=== PATIENT | female | born 1985 | race Caucasian/White ===

== ENCOUNTER 2016-10-15 17:18 | Emergency (ER) | payer OTHER ==
--- NOTE | ~2016-10-15 | CR72 ---
[facility] A Service of [facility] RADIOLOGY TEXT RESULTS PATIENT: BRENT TAN LOCATION: [facility] : 85 UNIT #: [id number] AGE: [address]: Ruperto Hicks MD SEX: F ORDER DR: [id number] [facility] [address] [place], [place] [address] [id number] MR#: [id number] Acc #: [id number] NAME: BRENT TAN : 1985 SEX: F STUDY DATE/TIME: 10/15/2016 18:17 UNIT: [facility] ROOM: STUDY DESCRIPTION: CR Chest Single View Portable Attending Physician: Ruperto Hicks M.D. Ordering Physician: Ruperto Hicks M.D. Primary Care Physician: No Primary Care Physician MEDICAL IMAGING REPORT This report is preliminary unless electronic signature is present EXAM Portable chest HISTORY Sharp chest pain onset today. Pain is in the midchest TECHNIQUE Single view of the chest was obtained. FINDINGS Single view chest shows no bony abnormalities. Heart size is normal. The inspiratory effort is shallow. At the inferior aspect of the image, there are multiple radiodensities noted projecting over the upper abdomen. I am not sure that this represents artifact, skin calcifications or calcifications in the upper peritoneum. It does not conform to normal anatomic structures. It could also represent artifact on the patient's clothing. Vascular markings are normal and no pleural fluid is seen. IMPRESSION Shallow inspiratory effort with no active disease seen in the chest. Multiple faint radiodensities are seen projecting over the upper abdomen. I suspect likely represents artifact perhaps from the patient's clothing. It could also potentially represent skin calcifications or peritoneal calcifications, but artifact is favored. Dictated by... Manolo Diallo M.D. THIS IS AN ELECTRONICALLY VERIFIED REPORT Manolo Diallo M.D. at 10/21/2016 7:11 AM [facility] A Service of [facility] RADIOLOGY TEXT RESULTS PATIENT: BRENT TAN LOCATION: [facility] : 85 UNIT #: [id number] AGE: [address]: Ruperto Hicks MD SEX: F ORDER DR: CAMILLE/[email or web address] TD: 10/15/2016 23:55 JOB #: [id number] MEDICAL IMAGING REPORT Page 1 of 1 COPY
--- NOTE | ~2016-10-15 | EKG ---
PATIENT: BRENT TAN UNIT #: [id number] Ventricular Rate: 83 BPM Atrial Rate: 83 BPM P-R Interval: 218 ms QRS Duration: 110 ms Q-T Interval: 370 ms QTC Calculation(Bezet): 434 ms P Willis: 61 degrees Calculated R Willis: 65 degrees Calculated T Willis: 23 degrees Diagnosis Line: Sinus rhythm with 1st degree A-V block Diagnosis Line: Otherwise normal ECG Diagnosis Line: No previous ECGs available Diagnosis Line: Confirmed by LOUIS LIVINGSTON MD ([id number]) on Diagnosis Line: 10/16/2016 6:51:45 AM INTERPRETING MD: [email or web address]
[2016-10-15 18:29] LABS: BASOPHIL% 0.4 % (0-2.5); EOSINOPHIL# 0.4 X10e3 (0-0.7); EOSINOPHIL% 4.3 % (0.0-7.0); HEMATOCRIT 38.2 % (35.0-45.0); HEMOGLOBIN 12.5 gm/dL (12.0-16.0); LYMPHOCYTE# 2.4 X10e3 (1.0-3.5); LYMPHOCYTE% 25.4 % (17.0-45.0); MEAN CELL VOLUME 86.9 FL (83-96); MEAN CORPUSCULAR HEMOGLOBIN 28.3 PG (28-34); MEAN CORPUSCULAR HGB CONC 32.6 g/dL (30-36); MEAN PLATELET VOLUME 10.8 FL (6.5-11.5); MONOCYTE# 0.4 X10e3 (0-1.0); MONOCYTE% 4.5 % (3.0-12.0); NEUTROPHIL# 6.3 X10e3 (1.5-7.1); NEUTROPHIL% 65.4 % (40-75); PLATELET COUNT 108 X10e3 (140-420); RED BLOOD COUNT 4.39 X10e (3.90-5.30); RED CELL DISTRIBUTION WIDTH 14.2 % (11.0-15.5); WHITE BLOOD COUNT 9.6 X10e3 (4.0-10.5)
[2016-10-15 18:30] LABS: DIFF IND NO
[2016-10-15 18:45] LABS: PARTIAL THROMBOPLASTIN TIME 27.1 SECONDS (23.5-31.3); PROTHROMBIN TIME (PATIENT) 10.9 SECONDS (10.0-11.7)
[2016-10-15 18:58] LABS: ALBUMIN SERUM 3.8 g/dL (3.5-5.0); BILIRUBIN, DIRECT 0.1 mg/dL (0.0-0.2); BILIRUBIN,TOTAL 0.1 mg/dL (0.2-2.0); BUN/CREATININE RATIO 13.33; CALCIUM SERUM 8.9 mg/dL (8.4-10.2); CREATININE SERUM 0.9 mg/dL (0.6-1.4); GLOM FILT RATE Estimated 85.9 mL/min (>60); POTASSIUM 3.5 mmol/L (3.5-5.1); PROTEIN TOTAL SERUM 6.8 g/dL (6.0-8.3)
[2016-10-15 20:20] LABS: POC - CKMB 1.1 ng/mL (0.0-7.9); POC - TROPONIN <0.05 ng/mL (<=0.05)
[2016-10-15 20:20] LABS: POC - CKMB <1.0 ng/mL (0.0-7.9); POC - TROPONIN <0.05 ng/mL (<=0.05)
== END 2016-10-15 20:27 | disposition home or self-care (01) ==
LOC: CED 17:18
PROVIDERS: Emergency Medicine
DX: R07.2 Precordial pain (principal); F17.200 Nicotine dependence, unspecified, uncomplicated
CPT/HCPCS: 36415; 71010; 80048; 80076; 82553; 84484; 85025; 85379; 85610; 85730; 93005; 96374; 99285; J1885